=== PATIENT | female | born 1945 | race Caucasian/White ===

== ENCOUNTER 2016-12-07 15:10 | Outpatient (CLI) | payer MEDICARE, BC | END 2016-12-07 15:11 | disposition home or self-care (01) | DX: M85.89 Other specified disorders of bone density and structure, multiple sites (principal) ==

== ENCOUNTER 2016-12-07 15:11 | Outpatient (CLI) | payer MEDICARE, BC | END 2016-12-07 15:12 | disposition home or self-care (01) | DX: Z12.31 Encounter for screening mammogram for malignant neoplasm of breast (principal); Z80.3 Family history of malignant neoplasm of breast ==

== ENCOUNTER 2018-02-17 06:20 | Day surgery (SDC) | payer MEDICARE, BC ==
[2018-02-17] MEDS ORDERED: LACTATED RINGERS 1,000 ML IV ONE ×3 (06:53→08:48)
[2018-02-17] MEDS ORDERED: MIDAZOLAM 2 MG/2 ML VIAL IVP ONE (07:30)
[2018-02-17] MEDS ORDERED: fentaNYL 100 MCG/2 ML VIAL IVP ONE (07:30)
--- NOTE | 2018-02-17 07:30 | HISTORY & PHYSICAL EXAMINATION ---
HPI - History of Present Illness HPI Comment/Other: Patient is here for screening colonoscopy Past Medical History: Reviewed history and no changes required: Thyroid problems Family History Summary: Reviewed history and no changes required: 01/18/2018 Mother (biol.) - Has Family History of Breast Cancer - Entered On: 01/18/2018 Father (biol.) - Has Family History of Heart Disease - Entered On: 01/18/2018 Sister (full) - Has Family History of Colon Cancer - Entered On: 01/18/2018 Social History: Reviewed history and no changes required: Risk Factors: Smoked Tobacco Use: Never smoker Drug use: no Alcohol use: yes Drinks per day: <1 Exercise: yes Times per week: 7 Type of Exercise: Walk Previous Tobacco Use: Problems were reviewed with the patient during this visit. Medications were reviewed with the patient during this visit. Allergies were reviewed with the patient during this visit. No known allergies. Physical Exam General: well developed, well nourished, in no acute distress Lungs: clear bilaterally to A & P Heart: regular rate and rhythm, S1, S2 without murmurs, rubs, gallops, or clicks Abdomen: bowel sounds positive; abdomen soft and non-tender without masses, organomegaly, or hernias noted Pulses: pulses normal in all 4 extremities Extremities: no clubbing, cyanosis, edema, or deformity noted with normal full range of motion of all joints Cervical Nodes: no significant adenopathy Psych: alert and cooperative; normal mood and affect; normal attention span and concentration Impression & Recommendations: Problem # 1: family history of colon cancer Will proceed with colonoscopy PMH/PSH - Past Medical History Cardiovascular: positive: None Respiratory: positive: None Endocrine/Autoimmune: positive: HyPOthyroidism GI: positive: None : positive: None HEENT: positive: None Psych: positive: None Musculoskeletal: positive: None Derm: positive: None MRSA Hx?: No - Past Surgical History General: positive: Colonoscopy Social & Family Hx - Social History ETOH Use: Beer Meds/Allgy - Home Medications Home Medications: Ambulatory Orders Medication Instructions Recorded Confirmed Levothyroxine Sodium 100 mcg PO DAILY 02/17/18 02/17/18 Loratadine 10 mg PO DAILY 02/17/18 02/17/18 - Allergies Allergies/Adverse Reactions: Allergies Allergy/AdvReac Type Severity Reaction Status Date / Time No Known Drug Allergies Allergy Verified 02/17/18 06:52 Exam - Vital Signs Vital Signs: Vital Signs x48h Temp Pulse Resp BP Pulse Ox 02/17/18 06:39 36.9 C 74 16 138/85 H 98
[2018-02-17] MEDS ORDERED: ONDANSETRON 4 MG/2 ML VIAL ONE ×2 (08:30→09:14)
[2018-02-17] MEDS ORDERED: METOCLOPRAMIDE 10 MG/2 ML VIAL ONE (09:16)
[2018-02-17 09:55] VITALS: BP 141/73
== END 2018-02-17 06:21 | disposition home or self-care (01) ==
LOC: SDS 06:20
PROVIDERS: ATTEND Surgery
PROC: 0DJD8ZZ Inspection of Lower Intestinal Tract, Via Natural or Artificial Opening Endoscopic (ICD-10-PCS; principal; 2018-02-17 07:30)
DX: Z12.11 Encounter for screening for malignant neoplasm of colon (principal); K64.8 Other hemorrhoids; Z80.0 Family history of malignant neoplasm of digestive organs; E03.9 Hypothyroidism, unspecified
CPT/HCPCS: G0105; J2765; J7120

== ENCOUNTER 2018-09-22 06:56 | Day surgery (SDC) | payer MEDICARE, BC ==
[~2018-09-22 06:56] MED LIST: CYCLOPENTOLATE 1% OPHTH DROPS 2 ML ONE; KETOROLAC 0.45% OPHTH DROPS ONE; PHENYLEPHRINE 2.5% OPHTH 2 ML DROPS ONE; PROPARACAINE 0.5% OPHTH DROPS 15 ML ONE
[2018-09-22] MEDS ORDERED: LACTATED RINGERS 500 ML IV ONE (07:13)
[2018-09-22] MEDS ORDERED: EPINEPHrine 1 MG/ML AMP ONE (07:14)
[2018-09-22] MEDS ORDERED: TIMOLOL 0.5% OPHTH DROPS ONE (07:14)
[2018-09-22] MEDS ORDERED: TRIAMCIN/MOXIFLOX OPHTHALMIC 0.6 ML VIAL IO ONE (07:14)
[2018-09-22] MEDS ORDERED: BRIMONIDINE 0.2% OPHTH DROPS 5 ML ONE (07:14)
[2018-09-22] MEDS ORDERED: CYCLOPENTOLATE 1% OPHTH DROPS 2 ML LEFTEYE ONE (07:15)
[2018-09-22] MEDS ORDERED: PHENYLEPHRINE 2.5% OPHTH 2 ML DROPS LEFTEYE ONE (07:15)
[2018-09-22] MEDS ORDERED: PROPARACAINE 0.5% OPHTH DROPS 15 ML LEFTEYE ONE ×2 (07:15→08:00)
[2018-09-22] MEDS ORDERED: VANCOMYCIN OPHTHALMI 8MG/0.8ML 8 MG/0.8 ML SYRINGE IO ONE (07:15)
[2018-09-22] MEDS ORDERED: KETOROLAC 0.45% OPHTH DROPS LEFTEYE ONE (07:15)
[2018-09-22] MEDS ORDERED: BSS/LIDOCAINE/EPINEPHRINE 1 ML SYRINGE ONE (07:15)
--- NOTE | 2018-09-22 07:23 | ANESTHESIA ---
Pre-Anesthesia VS, & Labs - Diagnosis Left nuclear sclerotic cataract - Procedure Left phaco with IOL implant Height 5 ft 4 in - NPO >8 hours Last Fluid Intake: Water at 0600 - Is Patient ?: No - Lab Results Lab results reviewed: No Home Medications and Allergies Home Medications: Ambulatory Orders D3/Folic Acid/Collagen,Hydroly [Cyfolex Capsule] 1,000 09/21/18 Levothyroxine Sodium 100 mcg PO DAILY 02/17/18 Loratadine 10 mg PO DAILY 02/17/18 D3/Folic Acid/Collagen,Hydroly [Cyfolex Capsule] 1,000 09/21/18 Allergies/Adverse Reactions: Allergies Allergy/AdvReac Type Severity Reaction Status Date / Time No Known Drug Allergies Allergy Verified 02/17/18 06:52 Anes History & Medical History - Anesthetic History Anesthesia Complications: reports: Post-Operative Nausea/Vomiting Family history of Anesthesia Complications: Denies Family history of Malignant Hyperthermia: Denies - Medical History Cardiovascular: reports: None Pulmonary: reports: None Gastrointestinal: reports: Colon polyps Urinary: reports: None Neuro: reports: None Musculoskeletal: reports: Osteoarthritis, Chronic back pain Endocrine/Autoimmune: reports: HyPOthyroidism Blood Disorders: reports: None Skin: reports: None Smoking Status: Never smoker Psychosocial: reports: No issues indicated - Surgical History General: Colonoscopy Eyes Ears Nose Throat (EENT): Cataracts Exam General: Alert Dental: Other (Upper crowns in front) Mouth Opening: Greater than 4 Fingerbreadths Neck Mobility: Normal Mallampati classification: I Thyromental Distance: greater than 6 cm Respiratory: Lungs clear Cardiovascular: Regular rate Neurological: Normal speech Mental/Cognitive Status: Alert/Oriented X3 Plan Anesthesia Type: General Consent for Procedure(s) Verified and Reviewed: Yes Code Status: Attempt Resuscitation ASA classification: 1-Healthy patient Is this case an emergency?: No
[2018-09-22] MEDS ORDERED: BRIMONIDINE 0.2% OPHTH DROPS 5 ML OPTH ONE (07:59)
[2018-09-22] MEDS ORDERED: CHONDR SULF/HYALURONATE SYRINGE IO ONE (07:59)
[2018-09-22] MEDS ORDERED: EPINEPHrine 1 MG/ML AMP IR ONE (07:59)
[2018-09-22] MEDS ORDERED: TIMOLOL 0.5% OPHTH DROPS OPTH ONE (08:00)
[2018-09-22] MEDS ORDERED: MIDAZOLAM 2 MG/2 ML VIAL IVP ONE (08:00)
[2018-09-22] MEDS ORDERED: BSS/LIDOCAINE/EPINEPHRINE 1 ML SYRINGE IO ONE (08:00)
[2018-09-22 08:28] VITALS: BP 141/91
--- NOTE | 2018-09-22 10:35 | OPERATIVE REPORT ---
DATE OF SERVICE: 09/22/2018 Physician: Matthieu Bautista MD PREOPERATIVE DIAGNOSIS: Visually significant cataract, left eye. Cataract surgery was performed on the right eye in 2005 by a different surgeon. POSTOPERATIVE DIAGNOSIS: Visually significant cataract, left eye. Cataract surgery was performed on the right eye and 2005 by a different surgeon. PROCEDURE: Phacoemulsification with posterior chamber intraocular lens implant left eye. SURGEON: Matthieu Bautista MD ANESTHESIA: Monitored anesthesia care. COMPLICATIONS: None. OPERATIVE INDICATIONS: This is a 73-year-old woman with progressive vision loss in the left eye due to 3-4+ nuclear sclerotic cataract. Best corrected visual acuity was 20/30 with glare to 20/630 in the left eye. Indications for surgery were difficulty seeing words on the computer screen, difficulty reading; difficulty seeing words, closed captions or game scores on TV; difficulty driving in low light or at night and difficulty driving at night because of headlights from other vehicles and/or streetlights. She was consented at length concerning risks and benefits of cataract surgery, after which she expressed a desire to proceed with surgery. OPERATIVE PROCEDURE: The patient was taken to OR #3 and placed under monitored anesthesia care. A surgical timeout was conducted confirming correct patient, correct procedure, and correct surgical site. She was given topical anesthesia and prepped and draped in the usual sterile fashion. The eye was entered at the 6 and 3 o'clock positions. Intracameral Shugarcaine was injected into the anterior chamber, followed by Viscoat. A continuous-tear curvilinear capsulorrhexis was performed. The nucleus was hydrodissected and phacoemulsified. The cortex was evacuated using automated infusion and aspiration. Provisc was injected into the capsular bag and a 17.5 diopter intraocular lens was inserted into the bag. Approximately 0.8 mL of a mixture of triamcinolone, moxifloxacin, and vancomycin was injected subconjunctivally in the superior quadrant for infection and inflammation prophylaxis. I and A was used to evacuate the viscoelastic materials. The eye was inflated to physiologic pressure using a balanced salt solution and found to be watertight. The patient was taken from the operating room in good condition and given postoperative instructions. TD: 09/22/2018 08:25 [facility]
== END 2018-09-22 06:57 | disposition home or self-care (01) ==
LOC: SDS 06:56
PROVIDERS: ATTEND Ophthalmology
PROC: 08RK3JZ Replacement of Left Lens with Synthetic Substitute, Percutaneous Approach (ICD-10-PCS; principal; 2018-09-22 08:00)
DX: H25.12 Age-related nuclear cataract, left eye (principal); E03.9 Hypothyroidism, unspecified; G43.909 Migraine, unspecified, not intractable, without status migrainosus
CPT/HCPCS: 66984; A9270; J3490; V2632

== ENCOUNTER 2019-06-23 09:34 | Outpatient (CLI) | payer MEDICARE, BC ==
--- NOTE | 2019-06-26 08:36 | DEXA Report ---
Reason: OSTEOPENIA, OSTEOPOROSIS Procedure Date: 06/23/2019 Accession Number: [id number] / [id number] Procedure: DEX - Dexa Spine and/or Hip CPT Code: FULL RESULT: EXAM: Dexa Spine and/or Hip DATE: 06/23/2019 10:00 AM CLINICAL HISTORY: OSTEOPENIA, OSTEOPOROSIS TECHNIQUE: Dual energy x-ray absorptiometry (DXA) was performed on a [facility]. Regions measured are the AP Spine, femoral neck, and if needed forearm. COMPARISON: 12/17/2016. In accordance with the International Society for Clinical Densitometry (ISCD) guidelines, data from previous exams may be reanalyzed using current recommendations and techniques. This is done to allow a more accurate basis for comparison with the current study. FINDINGS: The data for the lumbar spine is as follows: BMD (g/cm/cm) T-SCORE Z-SCORE REGION L1 0.939 -1.6 0.2 L2 0.974 -1.9 -0.1 L3 1.130 -0.6 1.2 L4 1.162 -0.3 1.5 TOTAL 1.050 -1.1 0.7 NOTE: All evaluable vertebrae are used for classification The data for the hip is as follows: BMD (g/cm/cm) T-SCORE Z-SCORE REGION Neck 0.784 -1.8 0.0 TOTAL 0.822 -1.5 0.2 NOTE: The femoral neck or total proximal femur, whichever is lowest, is used for classification. DXA RESULTS SUMMARY: Spine SCAN DATE AGE BMD CHANGE VS CHANGE VS PREVIOUS PREVIOUS % 7/23/2019 [age] 1.050 0.068* 6.9* 12/07/2016 [age] 0.982 * Denotes significant change at the 95% confidence level. Denotes dissimilar scan types or analysis methods. DXA RESULTS SUMMARY: Hip SCAN DATE AGE BMD CHANGE VS CHANGE VS PREVIOUS PREVIOUS % [birth year][age]23[birth year]2019 [age] 0.822 0.038* 4.8* 12/07/2016 [age] 0.784 * Denotes significant change at the 95% confidence level. Denotes dissimilar scan types or analysis methods. IMPRESSION: THE WHO CLASSIFICATION BASED ON THE INTERNATIONAL REFERENCE STANDARD IS OSTEOPENIA. THE FRACTURE RISK IS INCREASED. RECOMMENDATION: Patients with diagnosis of osteoporosis or osteopenia should have regular bone mineral density assessment. For those eligible for Medicare, routine testing is allowed once every 2 years. Testing frequency can be increased for patients who have rapidly progressing disease or for those who are receiving medical therapy to restore bone mass. COMMENT: World Health Organization (WHO) definitions for osteoporosis and osteopenia: NORMAL BMD: T-score at -1.0 or higher, fracture risk is low OSTEOPENIA BMD: T-score between -1.0 and -2.5, fracture risk is increased. OSTEOPOROSIS BMD: T-score at -2.5 or lower, fracture risk is high. National Osteoporosis Foundation recommends: 1. Obtain adequate dietary calcium (at least 1200 mg per day) and vitamin D (400-800 international units per day). 2. Participate, as appropriate, in regular weightbearing and muscle-strengthening exercise. 3. Avoid tobacco use and reduce alcohol and caffeine intake. 4. For more detailed information see the website at www.NOF.org.
== END 2019-06-23 09:35 | disposition home or self-care (01) ==
LOC: DI 09:34
PROVIDERS: ATTEND Internal Medicine
DX: M85.89 Other specified disorders of bone density and structure, multiple sites (principal)
CPT/HCPCS: 77080

== ENCOUNTER 2019-06-23 09:38 | Outpatient (CLI) | payer MEDICARE, BC ==
--- NOTE | 2019-06-23 11:15 | Mammography Report ---
Reason: SCREENING MAMMO Procedure Date: 06/23/2019 Accession Number: [id number] / [id number] Procedure: JACOB - Screening Mammo w/Tj CPT Code: FULL RESULT: EXAM: Screening Mammo w/Tj DATE: 06/23/2019 10:18 AM CLINICAL HISTORY: Screening examination. Family history of breast cancer in the mother at the age of 50 and a sister at the age of 72. History of benign left breast biopsy. TECHNIQUE: (B) - Bilateral CC, laterally exaggerated CC, MLO views were obtained. COMPARISON: 12/07/2016 through 03/01/2012. PARENCHYMAL PATTERN: (D) - The breast(s) demonstrate(s) heterogeneously dense fibroglandular parenchyma. FINDINGS: There are coarse typically benign calcifications. There are no suspicious masses, calcifications, or areas of distortion. IMPRESSION: Benign findings. BI-RADS category 2. RECOMMENDATION: (ANNUAL) - Recommend routine annual screening mammography. BI-RADS CATEGORY: (2) - Benign Findings. STANDARD QUALIFYING STATEMENTS: 1. This examination was not reviewed with the aid of Computer-Aided Detection (CAD). 2. A negative or benign imaging report should not preclude biopsy if clinically suspicious findings are present. 3. Dense breasts may obscure an underlying neoplasm. 4. This examination was reviewed with the aid of 3D breast imaging (tomosynthesis).
== END 2019-06-23 09:39 | disposition home or self-care (01) ==
LOC: DI 09:38
PROVIDERS: ATTEND Internal Medicine
DX: Z12.31 Encounter for screening mammogram for malignant neoplasm of breast (principal); Z80.3 Family history of malignant neoplasm of breast
CPT/HCPCS: 77063; 77067

== ENCOUNTER 2019-08-21 16:32 | Outpatient (CLI) | payer MEDICARE, BC ==
[2019-08-21 17:10] LABS: VBG PH 7.379 (7.31-7.41)
[2019-08-21 17:58] LABS: THYROID STIMULATING HORMONE 4.3 uIU/mL (0.34-5.60)
== END 2019-08-21 16:33 | disposition home or self-care (01) ==
LOC: LAB 16:32
PROVIDERS: ATTEND Family Medicine
DX: E03.9 Hypothyroidism, unspecified (principal)
CPT/HCPCS: 36415; 82330; 84439; 84443; 84481

== ENCOUNTER 2020-08-06 07:00 | Outpatient (CLI) | payer MEDICARE, BC ==
[2020-08-06 18:04] LABS: BASOPHILS # (AUTO) 0.1 10^3/uL (0.0-0.1); EOSINOPHILS # (AUTO) 0.2 10^3/uL (0.0-0.7); EOSINOPHILS % (AUTO) 4.3 %; HGB - HEMOGLOBIN 13.9 g/dL (12.0-16.0); LYMPHOCYTES # (AUTO) 1.6 10^3/uL (1.5-3.5); LYMPHOCYTES % (AUTO) 32.2 %; MEAN CORPUSCULAR HEMOGLOBIN 29.5 pg (27.0-31.0); MEAN CORPUSCULAR HGB CONC 32.1 g/dL (32.0-36.0); MEAN CORPUSCULAR VOLUME 91.9 fL (81.0-99.0); MEAN PLATELET VOLUME 9.7 fL (7.9-10.8); MONOCYTES # (AUTO) 0.4 10^3/uL (0.0-1.0); MONOCYTES % (AUTO) 8.7 %; NEUTROPHILS # (AUTO) 2.7 10^3/uL (1.5-6.6); NEUTROPHILS % (AUTO) 53.6 %; PLT - PLATELET COUNT 257 10^3/uL (130-450); RED BLOOD COUNT 4.71 10^6/uL (4.20-5.40); WHITE BLOOD COUNT 4.9 x10^3/uL (4.8-10.8)
[2020-08-06 18:42] LABS: ALBUMIN 3.9 g/dL (3.2-5.5); ALBUMIN/GLOBULIN RATIO 1.1 (1.0-2.2); ALKALINE PHOSPHATASE 43 IU/L (42-121); ALT ALANINE AMINOTRANSFERASE 16 IU/L (10-60); AST ASPARTATE AMINOTRANSFERASE 18 IU/L (10-42); BUN - BLOOD UREA NITROGEN 16 mg/dL (6-20); CALCIUM 10.1 mg/dL (8.5-10.3); CARBON DIOXIDE - CO2 28 mmol/L (21-32); CHLORIDE 102 mmol/L (101-111); CHOLESTEROL 246 mg/dL; CREATININE 0.8 mg/dL (0.4-1.0); GLUCOSE 90 mg/dL (70-100); HDL CHOLESTEROL 82 mg/dL; LDL CHOLESTEROL,CALCULATED 150 mg/dL; LDL/HDL RATIO 1.8 (<4.4); SODIUM 137 mmol/L (135-145); TOTAL PROTEIN 7.3 g/dL (6.7-8.2); VLDL CHOLESTEROL 14 mg/dL
[2020-08-06 18:46] LABS: THYROID STIMULATING HORMONE 6.34 uIU/mL (0.34-5.60)
[2020-08-06 18:48] LABS: FREE T3 2.53 pg/mL (2.5-3.9)
[2020-08-06 18:51] LABS: FREE T4 (FREE THYROXINE) 1.01 ng/dL (0.58-1.64)
== END 2020-08-06 23:59 | disposition home or self-care (01) ==
LOC: LAB.WCP 07:00
PROVIDERS: ATTEND Family Medicine
DX: M81.0 Age-related osteoporosis without current pathological fracture (principal); E03.9 Hypothyroidism, unspecified
CPT/HCPCS: 36415; 80053; 80061; 83721; 84439; 84443; 84481; 85025

== ENCOUNTER 2020-09-02 09:33 | Outpatient (CLI) | payer MEDICARE, BC | END 2020-09-02 09:34 | disposition home or self-care (01) | LOC: LAB 09:33 | PROVIDERS: ATTEND Family Medicine | DX: E03.9 Hypothyroidism, unspecified (principal) | CPT/HCPCS: 36415; 84443 ==

== ENCOUNTER 2020-09-20 13:24 | Outpatient (CLI) | payer MEDICARE, BC ==
--- NOTE | 2020-09-23 16:25 | Mammography Report ---
BILATERAL DIGITAL SCREENING MAMMOGRAM 3D/2D: 09/20/2020 CLINICAL: Routine screening. Comparison is made to exams dated: 06/23/2019 mammogram, 12/07/2016 mammogram, 08/08/2014 mammogram, 03/02 mammogram, and 03/01/2012 mammogram - [facility]. The tissue of both breasts i s heterogeneously dense. This may lower the sensitivity of mammography. There are benign calcifications in both breasts. No significant masses, calcifications, or other findings are seen in either breast. There has been no significant interval change. IMPRESSION: BENIGN There is no mammographic evidence of malignancy. A 1 year screening mammogram is recommended. This exam was interpreted at Station ID: [id number]. NOTE: For mammograms, a report in lay terms will be sent to the patient. Approximately 15% of breast malignancies will not be visualized mammographically. In the management of a palpable breast mass, a negative mammogram must not discourage biopsy of a clinically suspicious lesion. Electronically Signed By: Elkin Jackson M.D. atnacho/levi:09/20/2020 16:30:47 ACR BI-RADS Category 2: Benign Finding(s) 3342F PARENCHYMAL PATTERN: (D) - The breast(s) demonstrate(s) heterogeneously dense fibroglandular ramón mcmahon. BI-RADS CATEGORY: (2) - 2 RECOMMENDATION: (ANNUAL) - Recommend routine annual screening mammography. [id number] 1 year screening LATERALITY: (B)
== END 2020-09-20 13:25 | disposition home or self-care (01) ==
LOC: DI 13:24
PROVIDERS: ATTEND Family Medicine
DX: Z12.31 Encounter for screening mammogram for malignant neoplasm of breast (principal)
CPT/HCPCS: 77063; 77067

== ENCOUNTER 2021-05-22 10:26 | Outpatient (CLI) | payer MEDICARE, BC ==
--- NOTE | 2021-05-22 10:56 | XRAY Report ---
PROCEDURE: Foot 3 View RT INDICATIONS: FOOT PAIN,RIGHT TECHNIQUE: 3 views of the foot were acquired. COMPARISON: None FINDINGS: Bones: No fractures or dislocations. No suspicious bony lesions. Scattered IP narrowing is present . Soft tissues: No tibiotalar joint effusion. Achilles tendon appears normal. IMPRESSION: No visualized acute fracture or dislocation. However, occult injury cannot be excluded. Recommend bear rt interval imaging follow-up in 7-10 days as clinically indicated for additional evaluation. Reviewed by: Breanna Cheatham MD on 05/22/2021 10:54 AM PDT Approved by: Breanna Cheatham MD on 05/22/2021 10:54 AM PDT Station ID: [id number]
== END 2021-05-22 10:27 | disposition home or self-care (01) ==
LOC: DI 10:26
PROVIDERS: ATTEND Family Medicine
DX: M79.671 Pain in right foot (principal)

== ENCOUNTER 2021-10-10 10:37 | Outpatient (CLI) | payer MEDICARE, BC ==
[2021-10-10 11:03] LABS: BASOPHILS # (AUTO) 0.1 10^3/uL (0.0-0.1); BASOPHILS % (AUTO) 1.5 %; EOSINOPHILS # (AUTO) 0.3 10^3/uL (0.0-0.7); EOSINOPHILS % (AUTO) 5.5 %; HCT - HEMATOCRIT 41.5 % (37.0-47.0); HGB - HEMOGLOBIN 13.8 g/dL (12.0-16.0); LYMPHOCYTES # (AUTO) 1.9 10^3/uL (1.5-3.5); LYMPHOCYTES % (AUTO) 34.2 %; MEAN CORPUSCULAR HEMOGLOBIN 29.8 pg (27.0-31.0); MEAN CORPUSCULAR HGB CONC 33.3 g/dL (32.0-36.0); MEAN CORPUSCULAR VOLUME 89.6 fL (81.0-99.0); MONOCYTES # (AUTO) 0.5 10^3/uL (0.0-1.0); MONOCYTES % (AUTO) 9.2 %; NEUTROPHILS # (AUTO) 2.7 10^3/uL (1.5-6.6); NEUTROPHILS % (AUTO) 49.4 %; PLT - PLATELET COUNT 265 10^3/uL (130-450); RED BLOOD COUNT 4.63 10^6/uL (4.20-5.40); RED CELL DISTRIBUTION WIDTH 13.9 % (12.0-15.0); WHITE BLOOD COUNT 5.4 x10^3/uL (4.8-10.8)
[2021-10-10 11:19] LABS: ALBUMIN 3.9 g/dL (3.2-5.5); ALBUMIN/GLOBULIN RATIO 1.2 (1.0-2.2); ALKALINE PHOSPHATASE 48 IU/L (42-121); ALT ALANINE AMINOTRANSFERASE 17 IU/L (10-60); AST ASPARTATE AMINOTRANSFERASE 18 IU/L (10-42); BILIRUBIN,TOTAL 1.2 mg/dL (0.2-1.0); BUN - BLOOD UREA NITROGEN 19 mg/dL (6-20); CALCIUM 9.7 mg/dL (8.5-10.3); CARBON DIOXIDE - CO2 27 mmol/L (21-32); CHLORIDE 101 mmol/L (101-111); CHOL/HDL RATIO 3.1 (<4.4); CHOLESTEROL 219 mg/dL; CREATININE 0.9 mg/dL (0.4-1.0); GFR - MDRD 61 (>89); GLUCOSE 98 mg/dL (70-100); HDL CHOLESTEROL 71 mg/dL; LDL CHOLESTEROL,CALCULATED 132 mg/dL; LDL/HDL RATIO 1.9 (<4.4); POTASSIUM 3.9 mmol/L (3.5-5.0); SODIUM 136 mmol/L (135-145); TOTAL PROTEIN 7.1 g/dL (6.7-8.2); TRIGLYCERIDES 80 mg/dL; VLDL CHOLESTEROL 16 mg/dL
[2021-10-10 11:32] LABS: THYROID STIMULATING HORMONE 7.62 uIU/mL (0.34-5.60)
[2021-10-10 12:15] LABS: FREE T4 (FREE THYROXINE) 0.88 ng/dL (0.58-1.64)
--- NOTE | 2021-10-10 14:15 | XRAY Report ---
PROCEDURE: Lumbar Spine 2 View INDICATIONS: CHRONIC LOW BACK PAIN TECHNIQUE: 2 views of the lumbar spine were acquired. COMPARISON: None. FINDINGS: Bones: 5 [id number]-[id number]-[id number] vertebrae are present. Mild levocurvature. Mild degenerative anterolisthesi s of L4 on L5. No vertebral body compression fractures. No suspicious bony lesions. Lower lumbar fac et arthropathy. Multilevel disc space loss. Soft tissues: Overlying bowel gas pattern is normal. No suspicious soft tissue calcifications. IMPRESSION: Chronic degenerative change. No evidence acute bony abnormality of the lumbar spine. If clinical suspicion and/or symptoms persist, further assessment with repeat plain films or advanced imaging (e.g., CT, MRI, or bone scan) may be helpful for further assessment. Reviewed by: Eulalio Jones MD on 10/10/2021 2:13 PM [facility] Approved by: Eulalio Jones MD on 10/10/2021 2:13 PM [facility] Station ID: [id number]
== END 2021-10-10 10:38 | disposition home or self-care (01) ==
LOC: DI 10:37
PROVIDERS: ATTEND Family Medicine
DX: M47.816 Spondylosis without myelopathy or radiculopathy, lumbar region (principal); M51.36 Other intervertebral disc degeneration, lumbar region; E78.5 Hyperlipidemia, unspecified; R03.0 Elevated blood-pressure reading, without diagnosis of hypertension; E55.9 Vitamin D deficiency, unspecified; E03.9 Hypothyroidism, unspecified
CPT/HCPCS: 36415; 80053; 80061; 83721; 84439; 84443; 85025

== ENCOUNTER 2021-11-03 09:55 | Outpatient (CLI) | payer MEDICARE, BC ==
--- NOTE | 2021-11-04 14:09 | Mammography Report ---
BILATERAL DIGITAL SCREENING MAMMOGRAM 3D/2D: 11/03/2021 CLINICAL: Routine screening. Comparison is made to exams dated: 09/20/2020 mammogram, 06/23/2019 mammogram, 12/07/2016 mammogram, 08/2014 mammogram, 03/02/2013 mammogram, and [facility] The ti ssue of both breasts is heterogeneously dense. This may lower the sensitivity of mammography. There are benign calcifications in both breasts. No significant masses, calcifications, or other findings are seen in either breast. There has been no significant interval change. IMPRESSION: BENIGN There is no mammographic evidence of malignancy. A 1 year screening mammogram is recommended. This exam was interpreted at Station ID: [id number]. NOTE: For mammograms, a report in lay terms will be sent to the patient. Approximately 15% of breast malignancies will not be visualized mammographically. In the management of a palpable breast mass, a negative mammogram must not discourage biopsy of a clinically suspicious lesion. Electronically Signed By: Elkin gil/levi:11/03/2021 14:07:56 ACR BI-RADS Category 2: Benign Finding(s) 3342F PARENCHYMAL PATTERN: (D) - The breast(s) demonstrate(s) heterogeneously dense fibroglandular ramón mcmahon. BI-RADS CATEGORY: (2) - 2 RECOMMENDATION: (ANNUAL) - Recommend routine annual screening mammography. [id number] 1 year screening LATERALITY: (B)
== END 2021-11-03 09:56 | disposition home or self-care (01) ==
LOC: DI 09:55
DX: Z12.31 Encounter for screening mammogram for malignant neoplasm of breast (principal)

== ENCOUNTER 2023-01-18 09:46 | Outpatient (CLI) | payer MEDICARE, BC ==
--- NOTE | 2023-01-19 10:37 | Mammography Report ---
BILATERAL DIGITAL SCREENING MAMMOGRAM 3D/2D: 01/18/2023 CLINICAL: Routine screening. Family history of breast cancer. Comparison is made to exams dated: 11/03/2021 mammogram, 09/20/2020 mammogram, 06/23/2019 mammogram, mammogram, 08/08/2014 mammogram, and 03/02/2013 mammogram - [facility]. Both breasts are heterogeneously dense, which may obscure small masses (category c / 51-75% glandular tissue). There are benign calcifications in both breasts. No significant masses, calcifications, or other findings are seen in either breast. There has been no significant interval change. IMPRESSION: BENIGN There is no mammographic evidence of malignancy. A 1 year screening mammogram is recommended. Based on the Tyrer Cuzick model (a risk assessment model) the patients lifetime risk is 10.1% and he r 10 year risk is 0.0%. According to the ACR, ACS, and NCCN guidelines, an annual breast MRI exam daisha ng with mammogram is recommended if the patients lifetime risk is 20% or greater. This exam was interpreted at Station ID: [id number]. NOTE: For mammograms, a report in lay terms will be sent to the patient. Approximately 15% of breast malignancies will not be visualized mammographically. In the management of a palpable breast mass, a negative mammogram must not discourage biopsy of a clinically suspicious lesion. Electronically Signed By: Elkin gil/levi:01/18/2023 10:29:26 letter sent: No_Letter ACR BI-RADS Category 2: Benign Finding(s) 3342F PARENCHYMAL PATTERN: (D) - The breast(s) demonstrate(s) heterogeneously dense fibroglandular parpaulay ma. BI-RADS CATEGORY: (2) - 2 RECOMMENDATION: (ANNUAL) - Recommend routine annual screening mammography. [id number] 1 year screening LATERALITY: (B)
== END 2023-01-18 09:47 | disposition home or self-care (01) ==
LOC: DI 09:46
DX: Z12.31 Encounter for screening mammogram for malignant neoplasm of breast (principal); Z80.3 Family history of malignant neoplasm of breast

== ENCOUNTER 2023-02-08 09:44 | Outpatient (CLI) | payer MEDICARE, BC ==
[2023-02-08 10:14] LABS: BASOPHILS # (AUTO) 0.1 10^3/uL (0.0-0.1); EOSINOPHILS # (AUTO) 0.3 10^3/uL (0.0-0.7); EOSINOPHILS % (AUTO) 4.2 %; HCT - HEMATOCRIT 41.1 % (37.0-47.0); HGB - HEMOGLOBIN 13.7 g/dL (12.0-16.0); LYMPHOCYTES # (AUTO) 1.8 10^3/uL (1.5-3.5); MEAN CORPUSCULAR HEMOGLOBIN 29.6 pg (27.0-31.0); MEAN CORPUSCULAR HGB CONC 33.3 g/dL (32.0-36.0); MEAN CORPUSCULAR VOLUME 88.8 fL (81.0-99.0); MEAN PLATELET VOLUME 9.5 fL (7.9-10.8); MONOCYTES # (AUTO) 0.5 10^3/uL (0.0-1.0); MONOCYTES % (AUTO) 7.6 %; NEUTROPHILS # (AUTO) 3.6 10^3/uL (1.5-6.6); NEUTROPHILS % (AUTO) 57.9 %; PLT - PLATELET COUNT 237 10^3/uL (130-450); RED BLOOD COUNT 4.63 10^6/uL (4.20-5.40); WHITE BLOOD COUNT 6.2 x10^3/uL (4.8-10.8)
[2023-02-08 10:35] LABS: ALBUMIN 3.8 g/dL (3.2-5.5); ALBUMIN/GLOBULIN RATIO 1.1 (1.0-2.2); ALKALINE PHOSPHATASE 55 IU/L (42-121); ALT ALANINE AMINOTRANSFERASE 32 IU/L (10-60); AST ASPARTATE AMINOTRANSFERASE 20 IU/L (10-42); BILIRUBIN,TOTAL 1.2 mg/dL (0.2-1.0); BUN - BLOOD UREA NITROGEN 20 mg/dL (6-20); CALCIUM 9.8 mg/dL (8.5-10.3); CARBON DIOXIDE - CO2 27 mmol/L (21-32); CHLORIDE 106 mmol/L (101-111); CHOL/HDL RATIO 2.6 (<4.4); CHOLESTEROL 210 mg/dL; CREATININE 0.8 mg/dL (0.4-1.0); CRP - C-REACTIVE PROTEIN < 1.0 mg/dL (0-1.0); GFR - MDRD 70 (>89); GLUCOSE 102 mg/dL (70-100); HDL CHOLESTEROL 81 mg/dL; LDL CHOLESTEROL,CALCULATED 114 mg/dL; LDL/HDL RATIO 1.4 (<4.4); POTASSIUM 4.4 mmol/L (3.5-5.0); SODIUM 138 mmol/L (135-145); TOTAL PROTEIN 7.3 g/dL (6.7-8.2); TRIGLYCERIDES 73 mg/dL; VLDL CHOLESTEROL 15 mg/dL
[2023-02-08 11:04] LABS: THYROID STIMULATING HORMONE 5.27 uIU/mL (0.34-5.60)
[2023-02-08 11:06] LABS: FREE T4 (FREE THYROXINE) 0.86 ng/dL (0.58-1.64)
== END 2023-02-08 09:45 | disposition home or self-care (01) ==
LOC: LAB 09:44
PROVIDERS: ATTEND Nurse Practitioner
DX: E03.9 Hypothyroidism, unspecified (principal); R03.0 Elevated blood-pressure reading, without diagnosis of hypertension; Z13.220 Encounter for screening for lipoid disorders; M35.3 Polymyalgia rheumatica
CPT/HCPCS: 36415; 80053; 80061; 83721; 84439; 84443; 85025; 85651; 86140

== ENCOUNTER 2023-02-18 10:00 | Outpatient (CLI) | payer MEDICARE, BC ==
--- NOTE | 2023-02-18 11:10 | DEXA Report ---
PROCEDURE: Dexa Spine and/or Hip INDICATIONS: OSTEOPOROSIS TECHNIQUE: Dual energy x-ray absorptiometry (DXA) was performed on a [employer] System. Regions measur ed are the AP Spine, femoral neck, and if needed forearm. COMPARISON: 06/23/2019. FINDINGS: Lumbar Spine: Bone Mineral Density 1.097 g/cm/cm,T score -0.7. There is interval 4.5% increase in total lumbar s pine bone mineral density. Left Femoral Neck: Bone Mineral Density 0.738 g/cm/cm, T score -2.2. Left Hip: Bone Mineral Density 0.765 g/cm/cm,T score -1.9, there is interval 6.9% decrease in left hip bone mi neral density. (T score greater or equal to -1.0: NORMAL) (T score from -1.1 to -2.4: OSTEOPENIA) (T score less than or equal to -2.5 to: OSTEOPOROSIS) Impression: Osteopenia. Patients with diagnosis of osteoporosis or osteopenia should have regular bone mineral density assess ment. For those eligible for Medicare, routine testing is allowed once every 2 years. Testing frequ ency can be increased for patients who have rapidly progressing disease or for those who are receivin g medical therapy to restore bone mass. Reviewed by: Juan Kirk MD on 02/18/2023 10:08 AM [facility] Approved by: Juan Kirk MD on 02/18/2023 10:08 AM [facility] Station ID: [id number]
== END 2023-02-18 10:01 | disposition home or self-care (01) ==
LOC: DI 10:00
PROVIDERS: ATTEND Nurse Practitioner
DX: M85.89 Other specified disorders of bone density and structure, multiple sites (principal)

== ENCOUNTER 2024-01-06 13:15 | Outpatient (CLI) | payer MEDICARE, BC ==
--- NOTE | 2024-01-06 15:55 | XRAY Report ---
PROCEDURE: Thoracic Spine 3V INDICATIONS: THORACIC BACK PAIN TECHNIQUE: 3 views of the thoracic spine were acquired. COMPARISON: None. FINDINGS: Bones: No fractures or dislocations. No suspicious bony lesions. 12 pairs of ribs are noted, and a ppear intact where visualized. Mild multilevel degenerative changes with disc height loss, endplate degenerative changes and spurring. Diffusely decreased osseous mineralization. Soft tissues: No paravertebral stripe thickening. Small left pleural effusion with adjacent atelect asis versus consolidation. Calcification projecting over the left midlung field measuring approximate ly 2 cm. IMPRESSION: 1.Degenerative changes of the thoracic spine. No acute osseous abnormalities. 2.Small left pleural effusion with adjacent atelectasis versus consolidation. Calcification projectin g over the left midlung field. Recommend dedicated chest imaging for follow up. Reviewed by: Brock De Santiago MD on 01/06/2024 3:53 PM PST Approved by: Brock De Santiago MD on 01/06/2024 3:53 PM PST Station ID: [id number]
== END 2024-01-06 13:30 | disposition home or self-care (01) ==
LOC: DI.N 13:15
PROVIDERS: ATTEND Physician Assistant Medical
DX: M47.814 Spondylosis without myelopathy or radiculopathy, thoracic region (principal); J90 Pleural effusion, not elsewhere classified; J98.4 Other disorders of lung

== ENCOUNTER 2024-01-12 13:38 | Outpatient (CLI) | payer MEDICARE, BC ==
--- NOTE | 2024-01-12 16:45 | XRAY Report ---
PROCEDURE: Chest 2V INDICATIONS: THORACIC BACK PAIN TECHNIQUE: 2 views of the chest were acquired. COMPARISON: Thoracic spine x-ray dated 01/06/2024. FINDINGS: Surgical changes and devices: None. Lungs and pleura: No pneumothorax. Small left pleural effusion is seen with adjacent consolidated malorie ng changes calcific densities again project over the left lung. Mediastinum: Cardiac silhouette is normal in size. Bones and chest wall: scoliosis and DISH changes of the spine noted. IMPRESSION: Small left pleural effusion and adjacent consolidated lung change. CT may provide additional diagnost ic benefit if indicated. Reviewed by: Robert Travis MD on 01/12/2024 4:44 PM PST Approved by: Robert Travis MD on 01/12/2024 4:44 PM PST Station ID: [id number]
== END 2024-01-12 13:39 | disposition home or self-care (01) ==
LOC: DI 13:38
PROVIDERS: ATTEND Physician Assistant Medical
DX: J90 Pleural effusion, not elsewhere classified (principal); R91.8 Other nonspecific abnormal finding of lung field

== ENCOUNTER 2024-01-21 08:45 | Outpatient (CLI) | payer MEDICARE, BC ==
--- NOTE | 2024-01-21 12:39 | CT Report ---
PROCEDURE: Chest WO INDICATIONS: ABN CHEST XRAY TECHNIQUE: A CT scan of the chest was performed. Intravenous contrast media was not administered. Images were re corded and evaluated at appropriate window settings. Reformats: axial MIP of the chest, coronal and s agittal. For radiation dose reduction, the following was used: automated exposure control, adjustment of mA and/or kV according to patient size. COMPARISON: None. FINDINGS: Image quality: Diagnostic. Chest wall and lower neck: 1 cm right thyroid nodule with coarse calcification.. No axillary or supra clavicular adenopathy by size. Lungs and pleura: No consolidation. No pleural effusions. No pneumothorax. No suspicious pulmonary n odules which require follow up. There is scarring with benign appearing coarse calcifications seen i n the left base. Mediastinum: Heart size is normal. No pericardial effusion. Ascending aortic aneurysm measuring 4.6 c m in size. No mediastinal adenopathy by size criteria. Bones: No aggressive osseous abnormality. Upper Abdomen: Unremarkable. IMPRESSION: 1. Ascending aortic aneurysm measuring 4.6 cm in largest diameter. Recommend follow-up with contrast- enhanced chest CT 2. No suspicious pulmonary lesion seen. Coarse calcification and scarring in the left base appear naveen ign. Reviewed by: Robert Travis MD on 01/21/2024 12:38 PM PST Approved by: Robert Travis MD on 01/21/2024 12:38 PM PST Station ID: [id number]
== END 2024-01-21 08:46 | disposition home or self-care (01) ==
LOC: DI 08:45
PROVIDERS: ATTEND Family Medicine
DX: R91.8 Other nonspecific abnormal finding of lung field (principal); J90 Pleural effusion, not elsewhere classified; I71.21 Aneurysm of the ascending aorta, without rupture

== ENCOUNTER 2024-01-24 12:07 | Outpatient (CLI) | payer MEDICARE, BC ==
[2024-01-24 12:33] LABS: CREATININE 0.8 mg/dL (0.6-1.3)
[2024-01-24] MEDS ORDERED: iohexoL-300 100 ML VIAL ONE (14:22)
[2024-01-24] MEDS: iohexoL-300 100 ML VIAL IVP ONE (15:15)
--- NOTE | 2024-01-25 08:57 | CT Report ---
PROCEDURE: Chest W INDICATIONS: THORACIC AORTIC ANEURYSM CONTRAST: Omni 300 100ml TECHNIQUE: After the administration of intravenous contrast, a CT scan of the chest was performed. Images were recorded and evaluated at appropriate window settings. Reformats: axial MIP of the chest, coronal and sagittal. For radiation dose reduction, the following was used: automated exposure control, adjustme nt of mA and/or kV according to patient size. COMPARISON: None. FINDINGS: Image quality: Diagnostic. Aorta: Fusiform dilation of the ascending aorta measuring up to 4.5 cm in diameter. Prominent soft ti ssue layer and enceasing the descending thoracic aorta measuring approximately 8 mm in thickness with abnormal enhancement noted ; correlate with possible vasculitides/immunologic abnormalities. Chest wall and lower neck: Multinodular appearance of the thyroid. No axillary or supraclavicular geraldine nopathy by size. Lungs and pleura: Left lower lobe calcified lesion appears benign (52/4), benign. Minimal atelectatic changes in the bases. No pleural effusions. No pneumothorax. No suspicious pulmonary nodules which require follow up. Mediastinum: Heart size is normal. No pericardial effusion. No large vessel abnormality. No mediastin al adenopathy by size criteria. Bones: No aggressive osseous abnormality. Upper Abdomen: 1.2 cm right adrenal nodule, incompletely evaluated.. 50% narrowing at the origin of t he celiac artery with poststenotic dilation. IMPRESSION: 1. A 4.5 cm fusiform ascending thoracic aortic aneurysm. Recommend endovascular consult. 2. Abnormal soft tissue enceasing the descending thoracic aorta with abnormal enhancement pattern is of unknown etiology; this may represent various vasculitides/immunologic abnormalities. Recommended rheumatology or immunology consultation if indicated. 3. A 1.2 cm right adrenal nodule. If indicated, CT adrenal mass protocol may provide additional diagn ostic benefit. Reviewed by: Robert Travis MD on 01/25/2024 8:55 AM PST Approved by: Robert Travis MD on 01/25/2024 8:55 AM PST Station ID: [id number]
== END 2024-01-24 12:08 | disposition home or self-care (01) ==
LOC: LAB 12:07
PROVIDERS: ATTEND Family Medicine
DX: I71.20 Thoracic aortic aneurysm, without rupture, unspecified (principal); R93.1 Abnormal findings on diagnostic imaging of heart and coronary circulation; E27.9 Disorder of adrenal gland, unspecified
CPT/HCPCS: 36415; 71260; 82565; Q9967

== ENCOUNTER 2024-02-15 08:43 | Outpatient (CLI) | payer MEDICARE, BC ==
--- NOTE | 2024-02-16 11:15 | Mammography Report ---
BILATERAL DIGITAL SCREENING MAMMOGRAM 3D/2D: 02/15/2024 CLINICAL: Routine screening. Comparison is made to exams dated: 01/18/2023 mammogram, 11/03/2021 mammogram, 09/20/2020 mammogram, a nd 06/23/2019 mammogram - [facility]. Both breasts are heterogeneously dense, which may obscure small masses (category c / 51-75% glandular tissue). There are benign calcifications in both breasts. No significant masses, calcifications, or other findings are seen in either breast. There has been no significant interval change. IMPRESSION: BENIGN There is no mammographic evidence of malignancy. A 1 year screening mammogram is recommended. Based on the Tyrer Cuzick model (a risk assessment model) the patient's lifetime risk is 9.1% and her 10 year risk is 0.0%. According to the ACR, ACS, and NCCN guidelines, an annual breast MRI exam edith g with mammogram is recommended if the patient's lifetime risk is 20% or greater. This exam was interpreted at Station ID: [id number]. NOTE: For mammograms, a report in lay terms will be sent to the patient. Approximately 15% of breast malignancies will not be visualized mammographically. In the management of a palpable breast mass, a negative mammogram must not discourage biopsy of a clinically suspicious lesion. Electronically Signed By: Lonnie badillo/levi:02/15/2024 15:46:20 letter sent: No_Letter ACR BI-RADS Category 2: Benign Finding(s) 3342F PARENCHYMAL PATTERN: (D) - The breast(s) demonstrate(s) heterogeneously dense fibroglandular ramón mcmahon. BI-RADS CATEGORY: (2) - 2 RECOMMENDATION: (ANNUAL) - Recommend routine annual screening mammography. [id number] 1 year screening LATERALITY: (B)
== END 2024-02-15 08:44 | disposition home or self-care (01) ==
LOC: DI 08:43
DX: Z12.31 Encounter for screening mammogram for malignant neoplasm of breast (principal); R92.333 Mammographic heterogeneous density, bilateral breasts

== ENCOUNTER 2024-02-18 08:17 | Outpatient (CLI) | payer MEDICARE, BC ==
[2024-02-18 08:36] LABS: BASOPHILS # (AUTO) 0.1 10^3/uL (0.0-0.1); BASOPHILS % (AUTO) 1.5 %; EOSINOPHILS # (AUTO) 0.3 10^3/uL (0.0-0.7); EOSINOPHILS % (AUTO) 4.9 %; HCT - HEMATOCRIT 42.6 % (37.0-47.0); HGB - HEMOGLOBIN 13.5 g/dL (12.0-16.0); LYMPHOCYTES # (AUTO) 1.8 10^3/uL (1.5-3.5); LYMPHOCYTES % (AUTO) 34.1 %; MEAN CORPUSCULAR HEMOGLOBIN 28.7 pg (27.0-31.0); MEAN CORPUSCULAR HGB CONC 31.7 g/dL (32.0-36.0); MEAN CORPUSCULAR VOLUME 90.6 fL (81.0-99.0); MEAN PLATELET VOLUME 9.4 fL (7.9-10.8); MONOCYTES # (AUTO) 0.5 10^3/uL (0.0-1.0); MONOCYTES % (AUTO) 9.2 %; NEUTROPHILS # (AUTO) 2.7 10^3/uL (1.5-6.6); NEUTROPHILS % (AUTO) 50.3 %; PLT - PLATELET COUNT 281 10^3/uL (130-450); RED CELL DISTRIBUTION WIDTH 14.9 % (12.0-15.0); WHITE BLOOD COUNT 5.3 x10^3/uL (4.8-10.8)
[2024-02-18 08:52] LABS: ALBUMIN/GLOBULIN RATIO 1.3 (1.0-2.2); ALKALINE PHOSPHATASE 51 IU/L (42-121); ALT ALANINE AMINOTRANSFERASE 12 IU/L (10-60); AST ASPARTATE AMINOTRANSFERASE 15 IU/L (10-42); BILIRUBIN,TOTAL 0.9 mg/dL (0.2-1.0); BUN - BLOOD UREA NITROGEN 15 mg/dL (6-20); CALCIUM 10.2 mg/dL (8.5-10.3); CARBON DIOXIDE - CO2 27 mmol/L (21-32); CHLORIDE 107 mmol/L (101-111); CHOL/HDL RATIO 2.7 (<4.4); CHOLESTEROL 189 mg/dL; CREATININE 0.8 mg/dL (0.6-1.3); CRP - C-REACTIVE PROTEIN < 0.5 mg/dL (<0.5); GFR - MDRD 70 (>89); GLUCOSE 97 mg/dL (74-104); HDL CHOLESTEROL 71 mg/dL; LDL CHOLESTEROL,CALCULATED 104 mg/dL; LDL/HDL RATIO 1.5 (<4.4); POTASSIUM 4.2 mmol/L (3.5-4.5); SODIUM 138 mmol/L (135-145); TOTAL PROTEIN 7.2 g/dL (6.4-8.9); TRIGLYCERIDES 71 mg/dL (48-352); VLDL CHOLESTEROL 14 mg/dL
[2024-02-18 08:55] LABS: RHEUMATOID FACTOR NEGATIVE (Negative)
[2024-02-19 20:08] LABS: ANTI-DNA (DS) AB QN 12 IU/mL (0-9)
[2024-02-21 16:08] LABS: ANTINUCLEAR ANTIBODIES IFA Negative (.)
== END 2024-02-18 08:18 | disposition home or self-care (01) ==
LOC: LAB 08:17
PROVIDERS: ATTEND Nurse Practitioner
DX: E03.9 Hypothyroidism, unspecified (principal); E04.2 Nontoxic multinodular goiter; R03.0 Elevated blood-pressure reading, without diagnosis of hypertension; R91.8 Other nonspecific abnormal finding of lung field; M35.3 Polymyalgia rheumatica
CPT/HCPCS: 36415; 80053; 80061; 83721; 84439; 84443; 85025; 85651; 86038; 86140; 86200; 86225; 86430

== ENCOUNTER 2024-02-18 14:40 | Outpatient (CLI) | payer MEDICARE, BC ==
[2024-02-18] MEDS ORDERED: iohexoL-300 100 ML VIAL ONE (15:38)
[2024-02-18] MEDS: iohexoL-300 100 ML VIAL IVP ONE (16:19)
--- NOTE | 2024-02-18 22:27 | CT Report ---
PROCEDURE: Abdomen W/WO INDICATIONS: Adrenal Mass seen on prior CONTRAST: 100ml omni 300 TECHNIQUE: Noncontrast 5 mm thick sections acquired from the diaphragms to the symphysis. 5 mm coronal and sagi ttal reformats were then performed. For radiation dose reduction, the following was used: automated exposure control, adjustment of mA and/or kV according to patient size. COMPARISON: None. FINDINGS: Image quality: Excellent. Adrenal Glands: 1.7 cm right adrenal nodule. Absolute washout of 68%, consistent with a benign adrena l adenoma. OTHER: Lung bases and heart: Unremarkable. Liver: Calcified granuloma. Gallbladder and biliary tree: Unremarkable. No biliary dilation. Spleen: Calcified granuloma. Pancreas: Unremarkable. Kidneys and ureters: Punctate nonobstructing right-sided nephrolithiasis. Bowel and peritoneum: No bowel distension. No pathologic free fluid. Lymph nodes: No central or retroperitoneal adenopathy. Vessels: Unremarkable. Bones: No aggressive osseous abnormality. Other: None. IMPRESSION: 1.7 cm right adrenal adenoma based on absolute washout of 68%. Reviewed by: Albino Saunders MD on 02/18/2024 10:25 PM PDT Approved by: Albino Saunders MD on 02/18/2024 10:25 PM PDT Station ID: [id number]
--- NOTE | 2024-02-20 11:04 | Ultrasound Report ---
PROCEDURE: Soft Tissue Head or Neck INDICATIONS: GOITER TECHNIQUE: Real-time scanning was performed of the thyroid gland, with image documentation. COMPARISON: None FINDINGS: Right: Thyroid lobe measures 3.3 x 1.4 x 1.2 cm, and is homogeneous in echotexture. Left: Thyroid lobe measures 3.8 x 1.3 x 1.2 cm, and is homogenous in echotexture. Isthmus: 0.1 cm thick. Nodule number: One Location: Left inferior Size: 0.5 x 0.7 x 0.7 cm. Composition: Solid (2 points). Echogenicity: Hyperechoic (1 point). Shape: wider than tall (0 points). Margins: Smooth (0 points). Echogenic foci: None (0 points). Total points: 3 ACR TI-RADS category: 3 IMPRESSION: Solitary 7 mm T3 lesion. No further sonographic follow-up recommended. ACR TI-RADS definitions and recommendations: TI-RADS 1 (benign): 0 points. FNA not needed. TI-RADS 2 (not suspicious): 2 points. FNA not needed. TI-RADS 3 (mildly suspicious): 3 points. "FNA if 2.5 cm or larger, follow up if 1.5 cm or larger (at 1, 3, and 5 years). TI-RADS 4 (moderately suspicious): 4-6 points. "FNA if 1.5 cm or larger, follow up if 1 cm or larger (at 1, 2, 3, and 5 years). TI-RADS 5 (highly suspicious): 7 points or more. "FNA if 1 cm or larger, follow up if 0.5 cm or larger (every year for 5 years). Reviewed by: Taniya Christensen MD on 02/20/2024 11:02 AM PDT Approved by: Taniya Christensen MD on 02/20/2024 11:02 AM PDT Station ID: [id number]
== END 2024-02-18 14:41 | disposition home or self-care (01) ==
LOC: DI 14:40
PROVIDERS: ATTEND Nurse Practitioner
DX: E04.1 Nontoxic single thyroid nodule (principal); E27.8 Other specified disorders of adrenal gland; E03.9 Hypothyroidism, unspecified; E04.2 Nontoxic multinodular goiter; R03.0 Elevated blood-pressure reading, without diagnosis of hypertension; R91.8 Other nonspecific abnormal finding of lung field; M35.5 Multifocal fibrosclerosis
CPT/HCPCS: 36415; 74170; 76536; 80053; 80061; 84439; 84443; 85025; 85651; 86038; 86140; 86200; 86225; 86430; Q9967; 83721